=== PATIENT | female | born 1975 | race Two or more races ===

== ENCOUNTER 2024-03-06 21:12 | Emergency (ER) | payer MEDICAID ==
[~2024-03-06] VITALS: Ht 167.6 cm; Wt 77.2 kg
[2024-03-06 21:41] VITALS: BP 143/81; PULSE 78; RESP 18; O2SAT 97
== END 2024-03-06 22:10 | disposition left against medical advice (07) ==
LOC: ER 21:12
DX: R20.0 Anesthesia of skin (principal); R53.1 Weakness; Z53.21 Procedure and treatment not carried out due to patient leaving prior to being seen by health care provider

== ENCOUNTER 2024-11-23 10:05 | Emergency (ER) | payer MEDICAID ==
[~2024-11-23] VITALS: Ht 167.6 cm; Wt 81.7 kg
--- NOTE | 2024-11-23 10:46 | ED.PDOC ---
HPI (NEURO) HPI Comments This is a 49 year old female presenting to the ED with chief complaint of L sided headache radiating to the L neck and LUE numbness x 2 days and dizziness on waking up this morning. Patient denies any chest pain, SOB, syncope, focal weakness, vision changes, N/V, or fever. Chief Complaint: Dizziness Time Seen by MD: 10:44 Reviewed Notes: Nurses Notes, Medications, Allergies Information Source: Patient Mode of Arrival: Ambulatory Severity: Moderate Dizziness/Weakness Severity: Does not affect activitie Headache Severity: Moderate Timing: Days Duration: Since onset Prehospital treatment: None Headache Quality: Aching Headache Location: Parietal Weakness Location: Generalized Onset: At rest Circumstances: Spontaneous Symptoms: Weakness History of: None Associated Signs and Symptoms: Headache, Neck Pain, Weakness Past Medical History PAST MEDICAL HISTORY: DM, HTN Surgical History: Hysterectomy 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 Hx Family History Family History: Reviewed,noncontributory to illness Social History Smoker: Non-Smoker Alcohol: Denies ETOH Use Drugs: Denies Drug Use Lives In: Home Constitutional: reports: weakness; denies: chills, diaphoresis, fatigue, fever, malaise, sweats, others EENTM: denies: blurred vision, double vision, ear bleeding, ear discharge, ear drainage, ear pain, ear ringing, eye pain, eye redness, hearing loss, mouth pain, mouth swelling, nasal discharge, nose bleeding, nose congestion, nose pain, photophobia, tearing, throat pain, throat swelling, voice changes, others Respiratory: denies: cough, hemoptysis, orthopnea, SOB at rest, shortness of breath, SOB with excertion, stridor, wheezing, others Cardiovascular: denies: chest pain, dizzy spells, diaphoresis, Dyspnea on exertion, edema, irregular heart beat, left arm pain, lightheadedness, palpitations, PND, syncope, others Gastrointestinal: denies: abdomen distended, abdominal pain, blood streaked bowels, constipated, diarrhea, dysphagia, difficulty swallowing, hematemesis, melena, nausea, poor appetite, poor fluid intake, rectal bleeding, rectal pain, vomiting, others Genitourinary: denies: abnormal vagina bleeding, burning, dyspareunia, dysuria, flank pain, frequency, hematuria, incontinence, pain, , vagina di scharge, urgency, others Neurological: reports: dizziness, headache; denies: fainting, left sided numbness, left sided weakness, numbness, paresthesia, pre-existing deficit, right sided numbness, right sided weakness, seizure, speech problems, tingling, tremors, weakness, others Musculoskeletal: reports: neck pain; denies: back pain, gout, joint pain, joint swelling, muscle pain, muscle stiffness, others Integumetry: denies: bruises, change in color, change in hair/nails, dryness, laceration, lesions, lumps, rash, wounds, others Allergic/Immunocompromised: denies: Difficulty Healing, Frequent Infections, Hives, Itching, others Hematologic/Lymphatic: denies: anemia, blood clots, easy bleeding, easy bruising, swollen glands, others Endocrine: denies: excessive hunger, excessive sweating, excessive thirst, excessive urination, flushing, intolerance to cold, intolerance to heat, unexplained weight gain, unexplained weight loss, others Psychiatric: denies: anxiety, bipolar disorder, depression, hopeless, panic disorder, schizophrenia, sleepless, suicidal, others All Other Systems: Reviewed and Negative Physical Exam General Appearance: No Apparent Distress, Obese HEENT: PERRL/EOMI, Other (No facial asymmetry) Neck: Full Range of Motion, Normal Inspection, Other (Soft tissue tenderness left skull base) Respiratory: Lungs Clear, No Accessory Muscle Use, No Respiratory Distress, Normal Breath Sounds Cardiovascular: No Edema, No JVD, Regular Rate/Rhythm Breast Exam: Deferred Gastrointestinal: Non Tender, Soft Genitalia: Deferred Pelvic: Deferred Rectal: Deferred Extremities: Normal inspection, Normal range of motion, Non-tender, No pedal edema Neurologic: Alert (Oriented x4), No Motor Deficits, Normal Affect, Normal Mood, No Sensory Deficits, Other (Ambulatory) Cerebellar Function: NOT DONE Reflexes: NOT DONE Skin: Dry, Normal Color, Warm Lymphatic: NOT DONE EKG EKG : Comments Sinus rhythm, rate 78, normal intervals, left axis deviation, normal QRS, nonspecific T change. Was a procedure done? Was a procedure done?: No Differential Diagnosis (SZ) Seizure: CVA/TIA CVA: Electrolyte Imbalance General Weakness: Dysrhythmia, Myocardial infarction Headache: Cluster, Migraine, Epidural Hemorrhage, Intracerebral Hemorrhage, Subarachnoid Hemorrhage, Subdural Hemorrhage, Mass Lesion X-Ray, Labs, Meds, VS Vital Signs Date Time Temp Pulse Resp B/P (MAP) Pulse Ox O2 Delivery O2 Flow Rate FiO2 11/23/24 11:11 97.9 88 18 134/74 (94) 98 97.9 11/23/24 11:11 88 18 98 Room Air 11/23/24 10:06 98.1 87 16 143/78 97 98.1 Lab Test 11/23/24 12:56 11/23/24 11:53 11/23/24 10:44 Range/Units Troponin I High Sensitivity < 3 L < 3 L </=34 ng/L White Blood Count 11.4 H 4.4-10.8 10^3/uL Red Blood Count 5.34 H 4.0-5.20 10^6/uL Hemoglobin 15.8 12.2-16.2 g/dL Hematocrit 47.0 H 36.0-46.0 % Mean Corpuscular Volume 88.0 80.0-100.0 fL Mean Corpuscular Hemoglobin 29.5 28.0-32.0 pg Mean Corpuscular Hemoglobin Concent 33.6 32.0-36.0 g/dL Red Cell Distribution Width 13.8 11.8-14.3 % Platelet Count 146 140-450 10^3/uL Mean Platelet Volume 9.7 6.9-10.8 fL Neutrophils (%) (Auto) 56.8 37.0-80.0 % Lymphocytes (%) (Auto) 33.9 10.0-50.0 % Monocytes (%) (Auto) 7.1 0.0-12.0 % Eosinophils (%) (Auto) 1.8 0.0-7.0 % Basophils (%) (Auto) 0.4 0.0-2.0 % Neutrophils # (Auto) 6.5 1.6-8.6 10 ^3/uL Lymphocytes # (Auto) 3.9 0.4-5.4 10 ^3/uL Monocytes # (Auto) 0.8 0-1.3 10 ^3/uL Eosinophils # (Auto) 0.2 0-0.8 10 ^3/uL Basophils # (Auto) 0 0-0.2 10 ^3/uL Nucleated Red Blood Cells 0.2 % Platelet Estimate Adequate Clumped Platelets Few Sodium Level 142 136-145 mmol/L Potassium Level 3.9 3.5-5.1 mmol/L Chloride Level 107 98-107 mmol/L Carbon Dioxide Level 21 20-31 mmol/L Anion Gap 14 5-15 Blood Urea Nitrogen 12 9-23 mg/dL Creatinine 0.76 0.550-1.02 mg/dL Glomerular Filtration Rate Calc 97 >90 mL/min BUN/Creatinine Ratio 15.8 10.0-20.0 Serum Glucose 133 H 74-106 mg/dL Calcium Level 10.0 8.7-10.4 mg/dL B-Type Natriuretic Peptide 8.42 0-100 pg/mL Urine Color Light-yellow Yellow Urine Clarity Clear Clear Urine pH 5.0 5.0-9.0 Urine Specific [place] 1.014 1.001-1.035 Urine Protein Negative Negative Urine Ketones Negative Negative Urine Blood Trace H Negative /uL Urine Nitrite Negative Negative Urine Bilirubin Negative Negative Urine Urobilinogen Normal Negative mg/dL Urine Leukocyte Esterase Negative Negative /uL Urine RBC 1 0 - 4 /hpf Urine Microscopic WBC 1 0-5 /HPF Urine Squamous Epithelial Cells Few <5 /hpf Urine Bacteria Few H None Seen /hpf Urine Mucus Few None Seen Urine Glucose Normal Normal mg/dL Current Medications Medications (Trade) Dose Ordered Sig/Melecio Route Start Time Stop Time Status Last Admin Ketorolac Tromethamine (Toradol Injection) 60 mg ONCE ONCE IM 11/23/24 10:45 11/23/24 10:47 DC 11/23/24 10:59 Meclizine HCl (Antivert Tablet) 50 mg ONCE ONCE PO 11/23/24 10:45 11/23/24 10:47 DC 11/23/24 11:00 PROCEDURE(s): HWOCT - HEAD WITHOUT CONTRAST REASON: dizzy weak L sided headache ORDER NUMBER(s): [id number], ACCESSION NUMBER(s): [id number] EXAM: CT HEAD WITHOUT CONTRAST INDICATION: dizzy weak L sided headache TECHNIQUE: CT of the head without intravenous contrast. Radiation Dose Information: CT Dose: CTDI volume is mGy. Dose-length product is mGy*cm The dose indicators for CT are the volume Computed Tomography (CT) Dose Index (CTDIvol) and the Dose Length Product (DLP), and are measured in units of mGy and mGy-cm, respectively. These indicators are not patient dose, but values generated from the CT scanner acquisition factors. The report includes radiation exposure data for exposures received during this examination. COMPARISON: None FINDINGS: There is no evidence of acute intracranial hemorrhage, extra-axial collection, mass effect, midline shift, herniation or hydrocephalus. The ventricles, sulci and cisterns are age appropriate. The villa-white differentiation is intact. Patchy periventricular and subcortical white matter hypoattenuation is nonspecific but may be related to small vessel ischemic disease. The visualized paranasal sinuses and mastoid air cells are clear. The surrounding soft tissues and osseous structures are unremarkable. IMPRESSION: 1. No acute intracranial abnormality. EDURE(s): CXRP - CHEST PORTABLE REASON: dizzy weak ORDER NUMBER(s): [id number], ACCESSION NUMBER(s): [id number] CHEST RADIOGRAPH Indication: dizzy weak Technique: Single frontal view of the chest was obtained Comparison: None FINDINGS: Lines and Tubes: None Lungs: No focal consolidation. Pleura: No effusion. No pneumothorax. Cardiomediastinal contours: Unremarkable Bones: No acute osseous abnormality. IMPRESSION: 1. No acute cardiopulmonary disease. X-Ray, Labs, Meds, VS Comment 49-year-old female with a history of hypertension and diabetes complaining of l eft-sided headache radiating to the left neck, left upper extremity numbness,, dizziness and generalized weakness Vitals remarkable for BP 143/78 Exam unremarkable. No focal neurologic deficit Rhythm strip independently interpreted by me: Sinus rhythm, rate 78, no ectopy. CT head and chest x-ray unremarkable Labs remarkable for: WBC 11.4, basic metabolic panel, BNP, troponins and UA unremarkable Patient treated with the following in the ED: Toradol 60 mg IM, meclizine 50 mg p.o. On re-evaluation, pain has improved and vitals were stable. Exam is unchanged and there is no neurologic deficit. Patient appears stable for discharge with close outpatient follow-up with her primary physician. Symptoms may be due to tension headache or cervical radiculopathy. Rx ibuprofen, meclizine, Robaxin Images Reviewed?: Images reviewed and evaluated by me Time of 1ST Reevaluation: 11:43 Reevaluation 1ST: Improved Patient Education/Counseling: Diagnosis, Treatment Family Education/Counseling: No Family Present Departure 1 Departure Time of Disposition: 13:00 Impression: Primary Impression: Headache Qualified Codes: R51.9 - Headache, unspecified Additional Impression: Dizziness Disposition: HOME / SELF CARE / HOMELESS Condition: Stable Additional Instructions: Your blood and urine tests were unremarkable. Your head CT and chest x-ray were unremarkable. I have enclosed the reports below so you can show your doctor when you follow-up. I have prescribed pain medication, a muscle relaxer, and medication for dizziness. Follow-up with your primary doctor in 1-2 days. Return to ER for persistent or worsening symptoms. [place] [address] Ph: [phone] DIAGNOSTIC IMAGING Diagnostic Imaging Report : [id number] Signed PATIENT: KAYODE WILHELM ACCT: [id number] UNIT: [id number] : 1975 LOC: ER ROOM / BED: / AGE / SEX: 49 / F ADM STATUS: REG ER SERVICE 1044 ORDERING PHYSICIAN: JULIANA QUINTANILLA MD PROCEDURE(s): HWOCT - HEAD WITHOUT CONTRAST REASON: dizzy weak L sided headache ORDER NUMBER(s): [id number], ACCESSION NUMBER(s): [id number] EXAM: CT HEAD WITHOUT CONTRAST INDICATION: dizzy weak L sided headache TECHNIQUE: CT of the head without intravenous contrast. Radiation Dose Information: CT Dose: CTDI volume is mGy. Dose-length product is mGy*cm The dose indicators for CT are the volume Computed Tomography (CT) Dose Index (CTDIvol) and the Dose Length Product (DLP), and are measured in units of mGy and mGy-cm, respectively. These indicators are not patient dose, but values generated from the CT scanner acquisition factors. The report includes radiation exposure data for exposures received during this examination. COMPARISON: None FINDINGS: There is no evidence of acute intracranial hemorrhage, extra-axial collection, mass effect, midline shift, herniation or hydrocephalus. The ventricles, sulci and cisterns are age appropriate. The villa-white differentiation is intact. Patchy periventricular and subcortical white matter hypoattenuation is nonspeci fic but may be related to small vessel ischemic disease. The visualized paranasal sinuses and mastoid air cells are clear. The surrounding soft tissues and osseous structures are unremarkable. IMPRESSION: 1. No acute intracranial abnormality. [address] [address] Ph: [phone] DIAGNOSTIC IMAGING Diagnostic Imaging Report : [id number] Signed PATIENT: KAYODE WILHELM ACCT: [id number] UNIT: [id number] : 1975 LOC: ER ROOM / BED: / AGE / SEX: 49 / F ADM STATUS: REG ER SERVICE 1044 ORDERING PHYSICIAN: JULIANA QUINTANILLA MD PROCEDURE(s): CXRP - CHEST PORTABLE REASON: dizzy weak ORDER NUMBER(s): [id number], ACCESSION NUMBER(s): [id number] CHEST RADIOGRAPH Indication: dizzy weak Technique: Single frontal view of the chest was obtained Comparison: None FINDINGS: Lines and Tubes: None Lungs: No focal consolidation. Pleura: No effusion. No pneumothorax. Cardiomediastinal contours: Unremarkable Bones: No acute osseous abnormality. IMPRESSION: 1. No acute cardiopulmonary disease. e-Prescriptions Methocarbamol (Methocarbamol) 750 Mg Tab 750 MG PO Q8HP PRN, #30 TAB prn neck pain or muscle spasm Prov: JULIANA QUINTANILLA MD 11/23/24 Ibuprofen Micronized (Ibuprofen) 800 Mg Tab 800 MG PO Q8HP PRN, #30 TAB prn pain. Take with food. Prov: JULIANA QUINTANILLA MD 11/23/24 Meclizine HCl (Meclizine 25) 25 Mg Tab 25 MG PO TID PRN, #30 TAB prn dizziness Prov: JULIANA QUINTANILLA MD 11/23/24 Discharged With: Relative Critical Care Note Critical Care Time?: No Stability Stability form required: No Heart Score Heart Score: Heart Score Response (Comments) Value History N/A 0 EKG N/A 0 Age N/A 0 Risk Factors N/A 0 Troponin N/A 0 Total 0 I personally scribed for JULIANA QUINTANILLA MD ([email or web address]) on 11/23/24 at 10:46. Electronically submitted by Freddy Alcantara ([email or web address]). I personally scribed for JULIANA QUINTANILLA MD ([email or web address]) on 11/23/24 at 12:06. Electronically submitted by Freddy Alcantara ([email or web address]). JULIANA QUINTANILLA MD Nov 23, 2024 10:46
[2024-11-23] MEDS: KETOROLAC TROMETH 60MG/2ML VIAL IM ONE (10:59)
[2024-11-23] MEDS: MECLIZINE HCL 25 MG TAB PO ONE (11:00)
[2024-11-23 11:11] VITALS: BP 134/74; PULSE 88; RESP 18; TEMP 97.9; O2SAT 98
--- NOTE | 2024-11-23 11:44 | DVH ---
EXAM: CT HEAD WITHOUT CONTRAST INDICATION: dizzy weak L sided headache TECHNIQUE: CT of the head without intravenous contrast. Radiation Dose Information: CT Dose: CTDI volume is mGy. Dose-length product is mGy*cm The dose indicators for CT are the volume Computed Tomography (CT) Dose Index (CTDIvol) and the Dose Length Product (DLP), and are measured in units of mGy and mGy-cm, respectively. These indicators are not patient dose, but values generated from the CT scanner acquisition factors. The report includes radiation exposure data for exposures received during this examination. COMPARISON: None FINDINGS: There is no evidence of acute intracranial hemorrhage, extra-axial collection, mass effect, midline s hift, herniation or hydrocephalus. The ventricles, sulci and cisterns are age appropriate. The villa-white differentiation is intact. Patchy periventricular and subcortical white matter hypoattenuation is nonspecific but may be related to small vessel ischemic disease. The visualized paranasal sinuses and mastoid air cells are clear. The surrounding soft tissues and osseous structures are unremarkable. IMPRESSION: 1. No acute intracranial abnormality.
--- NOTE | 2024-11-23 11:45 | DVH ---
CHEST RADIOGRAPH Indication: dizzy weak Technique: Single frontal view of the chest was obtained Comparison: None FINDINGS: Lines and Tubes: None Lungs: No focal consolidation. Pleura: No effusion. No pneumothorax. Cardiomediastinal contours: Unremarkable Bones: No acute osseous abnormality. IMPRESSION: 1. No acute cardiopulmonary disease.
[2024-11-23 12:32] LABS: Calcium 10.0 mg/dL (8.7-10.4); Carbon Dioxide 21 mmol/L (20-31)
[2024-11-23 12:37] LABS: Anion Gap 14 (5-15); BUN/Creatinine Ratio 15.8 (10.0-20.0); Blood Urea Nitrogen 12 mg/dL (9-23); Potassium 3.9 mmol/L (3.5-5.1); Sodium 142 mmol/L (136-145)
[2024-11-23 12:39] LABS: Chloride 107 mmol/L (98-107); Glucose 133 mg/dL (74-106)
[2024-11-23 12:53] LABS: Hematocrit 47.0 % (36.0-46.0); Hemoglobin 15.8 g/dL (12.2-16.2); Mean Corpuscular Hemoglobin 29.5 pg (28.0-32.0); Mean Corpuscular Volume 88.0 fL (80.0-100.0); Nucleated Red Blood Cells % 0.2 %
[2024-11-23 14:43] LABS: Urine Protein, UAD Negative (Negative)
[2024-11-23] MEDS ORDERED: METH-1182 PO (14:52)
[2024-11-23] MEDS ORDERED: IBUP-1455 PO (14:52)
[2024-11-23] MEDS ORDERED: MECL1TAB42 PO (14:52)
--- NOTE | 2024-11-24 11:43 | ECG ---
[facility] Test Date: 2024-11-23 Test Time: 10:17:04 Pat Name: KAYODE SPEAR Department: ED Room: Gender: F Hand Laminator: BRITTNI : 1975 Requested By: JULIANA MANN Order Number: [id number] Reading MD: Osiel Chamberlain Measurements Intervals [place] Rate: 78 P: 50 CT: 175 QRS: 16 QRSD: 89 T: 63 QT: 384 QTc: 438 Interpretive Statements Sinus rhythm Abnormal R-wave progression, early transition Electronically Signed On 11-24-2024 19:18:13 PDT by Osiel Chamberlain Please click the below link to view image of tracing.
== END 2024-11-23 15:02 | disposition home or self-care (01) ==
LOC: ER 10:07
DX: R51.9 Headache, unspecified (principal); R42 Dizziness and giddiness; I10 Essential (primary) hypertension; E11.9 Type 2 diabetes mellitus without complications; Z90.710 Acquired absence of both cervix and uterus; Z79.899 Other long term (current) drug therapy
CPT/HCPCS: 36415; 70450; 71045; 80048; 81001; 83880; 84484; 85025; 93005; 96372; 99285; J1885; J8597